=== PATIENT | female | born 1995 | race Caucasian/White ===

== ENCOUNTER 2018-10-16 19:13 | Emergency (ER) | payer MEDICAID ==
[~2018-10-16] VITALS: Ht 165.1 cm; Wt 100.0 kg
[2018-10-16 19:42] VITALS: BP 156/79
[2018-10-16] MEDS ORDERED: IBUPROFEN 600MG TABLET PO ONE (21:45)
[2018-10-16] MEDS ORDERED: DEXAMETHASONE 10 MG/ML VIAL PO ONE (21:45)
== END 2018-10-16 22:04 | disposition home or self-care (01) ==
LOC: ER 19:13
DX: J03.90 Acute tonsillitis, unspecified (principal)
CPT/HCPCS: 99283; J1100